=== PATIENT | female | born 1955 | race Caucasian/White ===

== ENCOUNTER → 2021-12-05 | Outpatient (CLI) | payer BC ==
[2021-12-06 15:08] LABS: HPV 16 Negative (Negative); HPV 18 Negative (Negative); HPV OTHER HR TYPES Negative (Negative)
== END | disposition home or self-care (01) ==
LOC: LAB SHORT 13:42 → LAB 13:42
PROVIDERS: Obstetrics & Gynecology
DX: Z01.419 Encounter for gynecological examination (general) (routine) without abnormal findings (principal)
CPT/HCPCS: 87624; G0123

== ENCOUNTER → 2022-03-21 | Outpatient (CLI) | payer BC | END | disposition home or self-care (01) | LOC: LAB SHORT 13:36 | DX: L57.0 Actinic keratosis (principal) | CPT/HCPCS: 88305 ==

== ENCOUNTER → 2022-08-09 | Outpatient (CLI) | payer OTHER ==
[2022-08-09 14:28] LABS: Candida species (DNA Probe) Positive (NEGATIVE); G. vaginalis (DNA Probe) Positive (NEGATIVE); T. vaginalis (DNA Probe) Negative (NEGATIVE)
== END | disposition home or self-care (01) ==
LOC: LAB SHORT 09:39 → LAB 09:39
PROVIDERS: Physician Assistant Surgical
DX: L29.2 Pruritus vulvae (principal)
CPT/HCPCS: 87480; 87510; 87660

== ENCOUNTER 2024-03-31 08:38 | Day surgery (SDC) | payer OTHER ==
[~2024-03-31] VITALS: Ht 170.2 cm; Wt 70.7 kg
[~2024-03-31 08:38] MED LIST: NS 500 ML IV ONE
[2024-03-31] MEDS ORDERED: ESCI20 PO (09:02)
[2024-03-31] MEDS ORDERED: MIRT15ST (09:03)
[2024-03-31] MEDS ORDERED: Inderal60 MG PO (09:03)
[2024-03-31] MEDS ORDERED: PANTOPRAZOLE SO40 M2 PO (09:03)
[2024-03-31] MEDS ORDERED: REMERON1510 PO (09:03)
[2024-03-31] MEDS ORDERED: [UNRECOGNIZED DRUG - CODE] PO (09:06)
[2024-03-31] MEDS ORDERED: NS 500 ML IV ONE (09:14)
[2024-03-31] MEDS ORDERED: propofoL 20 ML IV ONE (09:21)
--- NOTE | 2024-03-31 09:21 | NUR ---
03/31/24 0921 Kasandra Brown TIME OUT PERFORMED AT BEDSIDE WITH DR RAMIREZ AT 0918 IMMEDIATELY PRIOR TO INJECTION OF 8ML OF 10ML SOLUTION CONSISTING OF 9ML LIDOCAINE 1% WITH EPI [id number] AND 1ML 8.4% SODIUM BICARBONATE. PT TOLERATED PROCEDURE WELL.
[2024-03-31] MEDS ORDERED: Midazolam HCl 1MG / ML 2ML Vial ONE (09:22)
[2024-03-31] MEDS ORDERED: FentaNYL Citrate 50 MCG/ML 2 ML Injection ONE (09:22)
[2024-03-31] MEDS ORDERED: Ondansetron HCl 2 MG / ML 2ML Vial ONE (09:54)
[2024-03-31] MEDS ORDERED: Dexamethasone Sod Phos 10 MG/ML 1ML VIAL ONE (09:54)
[2024-03-31 10:08] VITALS: BP 111/73
--- NOTE | 2024-03-31 10:48 | NUR ---
03/31/24 1048 ARACELY KIM TRAVELVIDHYA TOMAS RN IN WITH PT FOR CARE.
== END 2024-03-31 10:42 | disposition home or self-care (01) ==
LOC: ORSCSDS 08:38
PROVIDERS: Orthopaedic Surgery
PROC: 01N54ZZ Release Median Nerve, Percutaneous Endoscopic Approach (ICD-10-PCS; principal; 2024-03-31 10:00)
DX: G56.02 Carpal tunnel syndrome, left upper limb (principal); K21.9 Gastro-esophageal reflux disease without esophagitis; F32.A Depression, unspecified; Z79.899 Other long term (current) drug therapy
CPT/HCPCS: J1100; J2250; J2405; J2704; J3010; J7040

== ENCOUNTER → 2024-06-10 | Outpatient (CLI) | payer OTHER ==
[~2024-06-10] MED LIST changes: +ESCI20 PO; +Inderal60 MG PO; +MIRT15ST; -NS 500 ML IV ONE; +PANTOPRAZOLE SO40 M2 PO; +REMERON1510 PO; +[UNRECOGNIZED DRUG - CODE] PO
[2024-06-11 10:03] LABS: Bacterial Vaginosis PCR Negative (NEGATIVE); Candida Group, PCR NOT DETECTED (NOT DETECT); Candida glabrata-krusei, PCR NOT DETECTED (NOT DETECT)
[2024-06-11 10:39] LABS: Chlamydia Trachomatis Vaginal NOT DETECTED (NOT DETECT); Neisseria Gonorrhoea Vaginal NOT DETECTED (NOT DETECT)
== END ==
LOC: LAB SHORT 17:16 → LAB 17:16
PROVIDERS: Physician Assistant Medical
DX: B37.31 Acute candidiasis of vulva and vagina (principal)
CPT/HCPCS: 81515; 87491; 87591

== ENCOUNTER 2024-06-26 13:19 | Day surgery (SDC) | payer OTHER ==
[~2024-06-26] VITALS: Ht 170.2 cm; Wt 73.1 kg
[~2024-06-26 13:19] MED LIST changes: +Atropine Sulfate 0.1 MG/ML 10ML SYR ONE; +Glycopyrrolate 0.2 MG/ML 1MLVIAL ONE; +Lactated Ringer's 1,000 ML IV ONE; +Lidocaine 2% 5 ML SDV ONE; +Lidocaine HCl/Pf 1% 5 ML VIAL ONE; +Ondansetron HCl 2 MG / ML 2ML Vial ONE; +ePHEDrine Sulfate 50 MG/ML 1ML Injection ONE; +propofoL 50 ML IV ONE
[2024-06-26] MEDS ORDERED: DOXE25 (14:10)
[2024-06-26] MEDS ORDERED: Lactated Ringer's 1,000 ML IV ONE (15:03)
[2024-06-26] MEDS ORDERED: Lidocaine HCl 4% 5 ML SDA ONE (15:18)
--- NOTE | 2024-06-26 16:25 | NUR ---
06/26/24 1625 BLANCA WATSON 4% lido 3MLS ATOMIZED PRIOR TO EGD.
[2024-06-26 16:36] VITALS: BP 106/80
== END 2024-06-26 16:34 | disposition home or self-care (01) ==
LOC: ORSCSDS 13:19
PROVIDERS: Specialist
PROC: 0DB58ZX Excision of Esophagus, Via Natural or Artificial Opening Endoscopic, Diagnostic (ICD-10-PCS; principal; 2024-06-26 14:45)
PROC: 0DB68ZX Excision of Stomach, Via Natural or Artificial Opening Endoscopic, Diagnostic (ICD-10-PCS; principal; 2024-06-26 14:45)
DX: R13.10 Dysphagia, unspecified (principal); K21.9 Gastro-esophageal reflux disease without esophagitis; K44.9 Diaphragmatic hernia without obstruction or gangrene; K59.09 Other constipation; K31.84 Gastroparesis; F32.A Depression, unspecified; K57.30 Diverticulosis of large intestine without perforation or abscess without bleeding; Z79.899 Other long term (current) drug therapy
CPT/HCPCS: 88305; 88342; C1769; J0461; J2003; J2405; J2704; J7120